=== PATIENT | male | born 1945 | race Caucasian/White ===

== ENCOUNTER 2023-06-06 07:29 | Day surgery (SDC) | payer MEDICARE ==
[~2023-06-06] VITALS: Ht 177.8 cm; Wt 95.5 kg
[~2023-06-06 07:29] MED LIST: LEVOTHYROXINE125 MC1 PO; MULTI VITAMIN1 EACH PO; VENLAFAXINE HCL75 MG PO
[2023-06-06 07:47] VITALS: BP 139/58
--- NOTE | 2023-06-06 09:51 | NUR ---
06/06/23 0951 Areli Covarrubias 0947 PT TO PACU SLEEPY HE RESPONDS TO VERBAL STIMULI. DENIES PAIN AND NAUSEA.
[2023-06-06 10:18] VITALS: BP 132/66
--- NOTE | 2023-06-07 08:32 | OR ---
[facility] [address] [place], [place] [address] Signed DATE OF OPERATION: 06/06/2023 SURGEON: Reuben Ibanez MD PREOPERATIVE DIAGNOSIS: Father with colon cancer at the age of 72. POSTOPERATIVE DIAGNOSES: 1. 5 mm polyp at 22 cm in sigmoid colon. 2. 4 mm polyp at proximal transverse colon. 3. 4 mm polyp at distal hepatic flexure x3. 4. Minimal to moderate sigmoid diverticulosis. 5. Tortuous sigmoid colon. 6. Minimal internal hemorrhoids. PROCEDURE: Colonoscopy with hot biopsy. ESTIMATED BLOOD LOSS: None. INDICATIONS: Mera is a 78-year-old gentleman, who was asked to see me for his initial colonoscopy. He has no lower GI complaints. He said his father was diagnosed with colon cancer at the age of 72. 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 He has come back home to be with his family. He said this would be his 1st colonoscopy. However, he did undergo several upper endoscopies with aspirin while on a research protocol when he worked at [employer]. Consequently, he is familiar with endoscopy. I gave him our brochure on colonoscopy. We had reviewed the nature of the test. There is risk including, but not limited to gas bloating, crampy abdominal pain, bleeding, perforation requiring surgery, and missed diagnosis. We also reviewed the written instructions for the bowel prep line by line. We also reviewed the need for IV conscious sedation. He had expressed understanding and wished to proceed. PROCEDURE NOTE: Mera was taken into our endoscopy suite and placed in the left lateral decubitus position. He was given IV sedation with 6 mg of Versed and 125 mcg of fentanyl. Most of that was to get through his tortuous sigmoid colon. A digital rectal exam was performed. There were no external hemorrhoids. He had good sphincter tone. No masses. We did not palpate his prostate. The adult colonoscope had been introduced and Electronically Signed By: REUBEN IBANEZ MD 06/07/23 0832 PATIENT NAME: MERA SPRING OPERATIVE REPORT DATE OF : 45 REPORT #: [id number] PHYSICIAN: REUBEN IBANEZ MD PCP: QUOC GALLAGHER DO REPORT IS CONFIDENTIAL AND NOT TO BE RELEASED WITHOUT AUTHORIZATION [facility] [address] [place], [place] [address] Signed advanced under direct visualization of the camera. It took a few minutes to get through the sigmoid colon with additional sedation and abdominal compression. After that, the colon opened up nicely and the scope went around into the cecum itself without much difficulty. Overall, his prep was good. He does have a high-fiber diet and he might consider that in the future. We could see the appendiceal orifice and ileocecal valve. The scope was then slowly withdrawn. We took several pictures throughout for photodocumentation. The above-mentioned polyps were easily removed with the help of hot biopsy forceps. He does have diverticula in the sigmoid colon. They were moderate in size, few in number and scattered about. Once in the rectum, the scope was then retroflexed and he does have minimal internal hemorrhoid columns. After this, the gas was suctioned out and the colonoscope removed. Overall, Mera tolerated the procedure well. RECOMMENDATIONS: I will see Mera back in my office in 7 to 14 days to review his results. Reuben Ibanez MD ALB/MODL /[id number] cc: DO Reuben Vera MD Copies: QUOC GALLAGHER ANDREW L MD ~ Electronically Signed By: REUBEN IBANEZ MD 06/07/23 0832 PATIENT NAME: SAWMERA HUI OPERATIVE REPORT DATE OF : 45 REPORT #: [id number] PHYSICIAN: REUBEN IBANEZ MD PCP: QUOC GALLAGHER DO REPORT IS CONFIDENTIAL AND NOT TO BE RELEASED WITHOUT AUTHORIZATION
--- NOTE | 2023-06-12 15:34 | PATH ---
[facility] [address] [place], [place] [address] Signed SPECIMEN(S): A POLYP AT 22 CM SPECIMEN(S): B PROXIMAL TRANSVERSE COLON POLYP SPECIMEN(S): C DISTAL HEPATIC FLEXURE COLON POLYP SPECIMEN SOURCE: A. POLYP AT 22 CM B. PROXIMAL TRANSVERSE COLON POLYP C. DISTAL HEPATIC FLEXURE COLON POLYP CLINICAL HISTORY: Colonoscopy. Family history of colon cancer. Diverticuli, polyps, internal hemorrhoids. FINAL PATHOLOGIC DIAGNOSIS: A. Polyp at 22 cm: - Tubular adenoma (one fragment). B. Proximal transverse colon polyp: - Tubular adenoma (one fragment). C. Distal hepatic flexure colon polyp: - Tubular adenoma (two fragments). JVR:[email or web address] MICROSCOPIC EXAMINATION: Histologic sections of all submitted blocks are examined by light microscopy. These findings, together with the gross examination, support the pathologic diagnosis. GROSS DESCRIPTION: A. The specimen, labeled and designated "Ramig, R, polyp, polypectomy at 22 cm," is received in formalin and consists of one logan, soft tissue fragment measuring 0.3 x 0.3 cm and is submitted entirely in (A1). B. The specimen, labeled and designated "Ramig, R, colon, proximal transverse polypectomy," is received in formalin and consists of one logan, soft tissue fragment measuring 0.2 x 0.4 cm and is submitted entirely in (B1). C. The specimen, labeled and designated "Ramig, R, colon, distal hepatic flexure polypectomy," is received in formalin and consists of three logan, soft tissue fragments measuring 0.3 x 0.4 cm in greatest dimension. All specimens are submitted entirely in (C1). [facility] (under the direct supervision of a pathologist) PATIENT NAME: MERA SPRING PATHOLOGY DATE OF : 45 REPORT #: [id number] PHYSICIAN: JAIDEN PATHOLOGY PCP: QUOC GALLAGHER DO REPORT IS CONFIDENTIAL AND NOT TO BE RELEASED WITHOUT AUTHORIZATION [facility] [address] [place], [place] [address] Signed The Gross Description was prepared using a voice recognition system. The report was reviewed for accuracy; however, sound-alike word errors, addition and/or deletions may occur. If there is any question about this report, please contact Client Services. PERFORMING LABORATORY: Technical component was performed by [facility], [address] [place] [address] (CLIA# [id number]). Professional interpretation was performed by [facility] - [facility], [address] [place] [id number] (CLIA#: [id number]). Diagnostician: Gasper Huang MD Pathologist Electronically Signed 06/12/2023 Copies: ~ PATIENT NAME: MERA SPRING PATHOLOGY DATE OF : 45 REPORT #: [id number] PHYSICIAN: JAIDEN PATHOLOGY PCP: QUOC GALLAGHER DO REPORT IS CONFIDENTIAL AND NOT TO BE RELEASED WITHOUT AUTHORIZATION
== END 2023-06-06 10:30 | disposition home or self-care (01) ==
LOC: OPS 07:29 → DS 07:29 → OPS 09:15
PROVIDERS: ATTEND Colon & Rectal Surgery
PROC: 0DBL8ZZ Excision of Transverse Colon, Via Natural or Artificial Opening Endoscopic (ICD-10-PCS; 2023-06-06)
PROC: 0DBN8ZZ Excision of Sigmoid Colon, Via Natural or Artificial Opening Endoscopic (ICD-10-PCS; principal; 2023-06-06 09:15)
DX: Z12.11 Encounter for screening for malignant neoplasm of colon (principal); Z80.0 Family history of malignant neoplasm of digestive organs; F32.A Depression, unspecified; E03.9 Hypothyroidism, unspecified; K57.30 Diverticulosis of large intestine without perforation or abscess without bleeding; K64.8 Other hemorrhoids; D12.5 Benign neoplasm of sigmoid colon; D12.3 Benign neoplasm of transverse colon
CPT/HCPCS: 88305; 99153; G0500; J2250; J3010; J7121